=== PATIENT | male | born 1950 | race African-American/Black ===

== ENCOUNTER 2022-03-21 17:14 | Emergency (ER) | payer MEDICARE, MEDICAID | END 2022-03-21 17:47 | disposition home or self-care (01) | LOC: NAV ERS 17:14 | DX: H91.91 Unspecified hearing loss, right ear (principal); I10 Essential (primary) hypertension; F17.210 Nicotine dependence, cigarettes, uncomplicated; Z79.899 Other long term (current) drug therapy | CPT/HCPCS: 99283 ==

== ENCOUNTER 2023-07-25 12:49 | Emergency (ER) | payer MEDICARE, MEDICAID ==
[2023-07-25] MEDS ORDERED: Ibuprofen 800 MG TAB ONE (13:13)
== END 2023-07-25 13:16 | disposition home or self-care (01) ==
LOC: NAV ERS 12:49
DX: S39.012A Strain of muscle, fascia and tendon of lower back, initial encounter (principal); I10 Essential (primary) hypertension; I25.10 Atherosclerotic heart disease of native coronary artery without angina pectoris; F17.210 Nicotine dependence, cigarettes, uncomplicated; Z79.899 Other long term (current) drug therapy; Z79.82 Long term (current) use of aspirin; V89.2XXA Person injured in unspecified motor-vehicle accident, traffic, initial encounter
CPT/HCPCS: 99283

== ENCOUNTER 2024-08-24 03:53 | Emergency (ER) | payer MEDICARE, MEDICAID ==
[2024-08-24] MEDS ORDERED: Ipratropium/Albuterol 3 ML NEB ONE ×2 (04:09→04:51)
[2024-08-24 04:21] LABS: #Basophils 0.1 thou/uL (0.0-0.2); #Eosinophils 0.7 thou/uL (0.0-0.7); #Lymphocytes 2.5 thou/uL (1.20-3.40); #Monocytes 0.8 thou/uL (0.11-0.59); #Neutrophils 1.8 thou/uL (1.40-6.50); %Basophils 1.8 % (0.0-1.0); %Eosinophils 11.4 % (0.0-10.0); %Lymphocytes 42.6 % (21.0-51.0); %Monocytes 13.3 % (0.0-10.0); Hematocrit 48.6 % (42.0-52.0); Mean Corpuscular HGB CONC 32.8 g/dL (32.0-36.0); Mean Corpuscular Hemoglobin 33.9 pg (27.0-31.0); Mean Platelet Volume 6.8 fL (7.4-10.4); Platelet Count 214 10x3/uL (130-400); RBC Distribution Width 11.4 % (11.5-14.5); White Blood Cell (WBC) Count 5.8 10x3/uL (4.8-10.8)
[2024-08-24 04:36] LABS: ALT (SGPT) 42 U/L (8-55); AST (SGOT) 54 U/L (5-34); Albumin 3.4 g/dL (3.4-4.8); Alkaline Phosphatase 117 U/L (40-110); Anion Gap 16 mmol/L (10-20); BUN (Urea Nitrogen) 15 mg/dL (8.4-25.7); Bilirubin, Total 0.3 mg/dL (0.2-1.2); Calc. Creatinine Clearance 0 mL/min (70-130); Calcium 8.4 mg/dL (7.8-10.44); Carbon Dioxide 24 mmol/L (23-31); Chloride 105 mmol/L (98-107); Estimated GFR 57; Globulin 3.9 g/dL (2.4-3.5); Glucose 181 mg/dL (83-110); Potassium 4.1 mmol/L (3.5-5.1); Protein, Total 7.3 g/dL (5.8-8.1); Sodium 141 mmol/L (136-145)
[2024-08-24] MEDS ORDERED: methylPREDNISolone Sod Succ/PF 125 MG/2 ML VIAL ONE (04:54)
[2024-08-24] MEDS ORDERED: cefTRIAXone (ROCEPHIN) 1 GM VIAL ONE (05:30)
[2024-08-24 06:05] LABS: Base Excess-Venous 2.8 mmol/L (-2.0 to 3.0); Bicarbonate (HCO3v) 29.6 mmol/L (22.0-28.0); Calcium, Ionized 1.03 mmol/L (1.15-1.33); Chloride 106 mmol/L (98-107); Hemoglobin - Calc 16.1 g/dL (14.0-18.0); Potassium 8.2 mmol/L (3.5-5.1); Sodium 138 mmol/L (138-145); T. Carbon Dioxide 31.2 mmol/L (22.0-28.0); vO2 Saturation-calc 56.3 % (60.0-85.0)
== END 2024-08-24 06:41 | disposition short-term general hospital (02) ==
LOC: NAV ERS 03:53
DX: J44.1 Chronic obstructive pulmonary disease with (acute) exacerbation (principal); I10 Essential (primary) hypertension; E78.5 Hyperlipidemia, unspecified; Z79.899 Other long term (current) drug therapy; Z79.82 Long term (current) use of aspirin; Z86.73 Personal history of transient ischemic attack (TIA), and cerebral infarction without residual deficits
CPT/HCPCS: 71045; 80053; 82330; 82435; 82803; 83880; 84132; 84295; 84484; 85014; 85025; 87040; 87428; 93005; 94640 ×2; 94760; J0696; J2919; 87077; 87149; 96374; 96375; J7620